=== PATIENT | female | born 1960 | race Hispanic/Latino ===

== ENCOUNTER → 2017-12-04 | Outpatient (CLI) | payer OTHER ==
--- NOTE | 2017-12-05 09:59 | Diagnostic Imaging Report ---
#[id number] - MGSCRBIL #BILATERAL DIGITAL SCREENING MAMMOGRAM WITH CAD: 12/04/2017 CLINICAL: Routine screening. Comparison is made to exams dated: 12/05/2016 mammogram and 11/20/2015 mammogram - [facility]. Current study contains 4 films. The tissue of both breasts is heterogeneously dense. This may lower the sensitivity of mammography. Current study was also evaluated with a Computer Aided Detection (CAD) system. There is fine calcification in the left breast at 1 o'clock middle depth that is increasing compared to the prior study. There are now at least 6-7 focals ludmila++ whereas on the previous study there was only 1 ludmila++. Scattered benign appearing calcification is present in both breasts. No other significant masses, calcifications, or other findings are seen in either breast. IMPRESSION: INCOMPLETE: NEEDS ADDITIONAL IMAGING EVALUATION The fine calcification in the left breast is indeterminate. Spot magnification views are recommended. The patient will be contacted by the Mammography Department to schedule this appointment. Quincy Masterson Jr., D.O. cw/:12/04/2017 13:23:27 Head Refrigeration Engineer: Francheska JACOME(Carolyne)(M), [facility] letter sent: Additional Imaging Needed Mammogram BI-RADS: 0 Indeterminate
== END ==
LOC: MAMMO 12:31
PROVIDERS: ATTEND Obstetrics & Gynecology
DX: Z12.31 Encounter for screening mammogram for malignant neoplasm of breast (principal)
CPT/HCPCS: 77067

== ENCOUNTER → 2017-12-14 | Outpatient (CLI) | payer OTHER ==
--- NOTE | 2017-12-14 15:43 | Diagnostic Imaging Report ---
#[id number] - [id number] #UNILATERAL LEFT DIGITAL DIAGNOSTIC MAMMOGRAM WITH SPOT COMPRESSION AND MAGNIFICATION: 12/14/2017 Comparison is made to exams dated: 12/04/2017 mammogram, 12/05/2016 mammogram and 11/20/2015 mammogram - [facility]. The tissue of the left breast is heterogeneously dense. This may lower the sensitivity of mammography. There is an amorphous calcification in the left breast at 1 o'clock anterior depth that is at a low suspicion for malignancy but has increased since the prior study. No other significant masses or calcifications are seen in the breast. IMPRESSION: SUSPICIOUS OF MALIGNANCY The amorphous calcification in the left breast is at a low suspicion for malignancy. A stereotactic biopsy is recommended. A phone call was made to the physician's office and the findings were discussed with Joelle. The patient will be contacted by the Mammography Department to schedule this appointment. Quincy Masterson Jr., D.O. cw/:12/14/2017 13:51:56 Credit Associate: Francheska JACOME(Carolyne)(M), [facility] letter sent: Biopsy Required Mammogram BI-RADS: 4a Suspicious abnormality - low suspicion for malignancy
== END ==
LOC: MAMMO 10:12
PROVIDERS: ATTEND Obstetrics & Gynecology
DX: N64.59 Other signs and symptoms in breast (principal)

== ENCOUNTER → 2018-01-04 | Outpatient (CLI) | payer OTHER ==
[~2018-01-04] MED LIST: LIDOCAINE 2% /EPINEPHRINE 20 ML SDV INJ ONE; LIDOCAINE HCL 1% LOCAL INJ 20 ML VIAL ONE; SODIUM CHLORIDE 0.9% 250ML 250 ML ONE
--- NOTE | 2018-01-05 08:48 | Diagnostic Imaging Report ---
#[id number] - [id number] STEREOTACTIC GUIDED BIOPSY: 01/04/2018 PATIENT CONSENT: According to [facility] requirements, a time out was performed, correct site was localized and the patient was consented. PROCEDURE DESCRIPTION: A stereotactic biopsy of the grouped calcifications in the left breast was requested. The procedure was fully discussed with the patient including benefits, risks and alternatives. The need for a post biopsy clip was discussed. It was performed with written informed consent. A maritime officer out was taken prior to beginning the biopsy to confirm patient and procedure, including laterality. The area of concern was targeted stereotactically using an upright biopsy machine. The area over the site was prepared in the standard sterile fashion. Local anesthsia was achieved with 1% Lidocaine. The biopsy probe was advanced to the lesion and vacuum assisted core biopsy samples obtained. A micromarker was placed. After removal of the probe, hemostasis was achieved with compression and a sterile bandage was applied. A specimen radiograph shows calcifications within the cores, concordant with biopsy images. Following the procedure, the patient was discharged from the breast area with no immediate complications. Full post biopsy instructions were provided and acknowledged by the patient. Correlation is made to exams dated: 12/14/2017 mammogram, 12/04/2017 mammogram, 12/05/2016 mammogram and 11/20/2015 mammogram - [facility]. IMPRESSION: STEREOTACTIC GUIDED BIOPSY Follow-up with ACR/ACS guidelines. Quincy gustafosn/young:01/04/2018 13:33:06 In Service Coordinator: Francheska PARK)([place]), [facility] [id number]
== END ==
LOC: MAMMO 08:25
PROVIDERS: ATTEND Obstetrics & Gynecology
DX: R92.1 Mammographic calcification found on diagnostic imaging of breast (principal)
CPT/HCPCS: 19081; 88305; J2001 ×2; J7050

== ENCOUNTER → 2018-12-04 | Outpatient (CLI) | payer OTHER ==
--- NOTE | 2018-12-10 08:37 | Diagnostic Imaging Report ---
#[id number] - MGSCRBIL #BILATERAL DIGITAL SCREENING MAMMOGRAM WITH CAD: 12/04/2018 CLINICAL: Routine screening. Comparison is made to exams dated: 12/14/2017 mammogram, 12/04/2017 mammogram and 12/05/2016 mammogram - [facility]. Current study contains 4 films. The tissue of both breasts is heterogeneously dense. This may lower the sensitivity of mammography. Current study was also evaluated with a Computer Aided Detection (CAD) system. Benign appearing calcifications are noted bilaterally. A clip is noted in the left breast. There ia a benign appearing mass in the right breast which is stable. No significant masses, calcifications, or other findings are seen in either breast. IMPRESSION: BENIGN There is no mammographic evidence of malignancy. A 1 year screening mammogram is recommended. The patient will be notified by letter of the results. KATIE BUCKNER M.D. ct/penrad:12/07/2018 15:27:02 Rotoprinter: Francheska JACOME(R)(M), [facility] letter sent: Normal Exam Mammogram BI-RADS: 2 Benign
== END ==
LOC: MAMMO 08:13
PROVIDERS: ATTEND Obstetrics & Gynecology
DX: Z12.31 Encounter for screening mammogram for malignant neoplasm of breast (principal)
CPT/HCPCS: 77067

== ENCOUNTER → 2020-01-07 | Outpatient (CLI) | payer OTHER | LOC: MAMMO 08:02 | PROVIDERS: ATTEND Obstetrics & Gynecology | DX: Z12.31 Encounter for screening mammogram for malignant neoplasm of breast (principal) | CPT/HCPCS: 77067 ==

== ENCOUNTER → 2021-01-08 | Outpatient (CLI) | payer OTHER | LOC: MAMMO 08:11 | PROVIDERS: ATTEND Obstetrics & Gynecology | DX: Z12.31 Encounter for screening mammogram for malignant neoplasm of breast (principal) | CPT/HCPCS: 77067 ==

== ENCOUNTER → 2022-01-07 | Outpatient (CLI) | payer BC | LOC: MAMMO 08:27 | PROVIDERS: ATTEND Obstetrics & Gynecology | DX: Z12.31 Encounter for screening mammogram for malignant neoplasm of breast (principal) | CPT/HCPCS: 77067 ==